=== PATIENT | male | born 1945 | race Caucasian/White ===

== ENCOUNTER 2017-12-24 09:33 | Day surgery (SDC) ==
[2017-12-24] MEDS ORDERED: LIDOCAINE 1% 20 ML MDV ID STA (10:41)
[2017-12-24 10:44] VITALS: TEMP 98.4
[2017-12-24] MEDS ORDERED: VERSED ONE (12:15)
[2017-12-24] MEDS ORDERED: DIPRIVAN 20 ML VIAL IVP ONE (12:15)
[2017-12-24 13:56] VITALS: BP 121/67
--- NOTE | 2017-12-25 09:07 | OP ---
PROCEDURE: COLONOSCOPY TO THE CECUM. ENDOSCOPIST: Yaakov JOHNSON M.D. INDICATION: HISTORY OF POLYPS INSTRUMENT: [employer]-190. MEDICATION: PER ANESTHESIA. PROCEDURE: The patient was positioned for colonoscopy. The digital rectal exam was negative. The colonoscope was inserted through the anus and advanced to the cecum. The cecum was identified using the ileocecal valve and the appendiceal orifice as landmarks. The scope was slowly withdrawn through an adequately prepped colon. [place] Bowel Prep score of 9. The exam with normal with exception of a few scattered diverticuli in the left colon. Retroflex exam was negative. The patient tolerated the procedure without immediate complication. Withdraw time 8 minutes and 25 seconds. PLAN: 1. Suggest repeat colonoscopy for surveillance in 5 years. CC: Dr. Olvin PINEDA
== END 2017-12-24 13:35 | disposition home or self-care (01) ==
LOC: SURG 09:33
PROVIDERS: ATTEND Internal Medicine Gastroenterology
DX: Z86.010 Personal history of colon polyps (principal)